=== PATIENT | male | born 2000 | race Caucasian/White ===

== ENCOUNTER 2022-08-21 12:09 | Emergency (ER) | payer OTHER, SELFPAY ==
[2022-08-21 12:10] VITALS: BP 153/93; PULSE 63; RESP 18; TEMP 36.7; O2SAT 100; BMI 23.3
[2022-08-21 12:12] VITALS: O2SAT 100
--- NOTE | 2022-08-21 12:17 | EDS_ITS ---
HPI History of Present Illness Chief Complaint: Trauma Narrative Narrative: 22-year-old male who denies significant past medical history presents with injury to his left hand that he sustained prior to arrival. He presents with his employer, stating that he got his left hand caught in a rib table/table saw. Patient states he is right-hand dominant. His last tetanus immunization is unknown. He presents with total amputation of his second digit on his left hand at the PIP joint with the finger wrapped in a towel in a separate bag on ice. He sustained lacerations to the volar aspect of his fourth digit. The tip of the fourth digit is taped heavily. There is no active bleeding. [facility] Medical History Concussion Skull fracture Home Medications NK 08/21/22 [History Last Taken Unknown] Allergy/AdvReac Type Severity Reaction Status Date / Time No Known Allergies Allergy Verified 08/21/22 12:09 Social History Smoking Status: Current every day smoker tobacco type: cigarettes ROS ROS ED ROS Narrative Constitutional: No fever, no chills. HEENT: No sore throat. No neck pain. No loss of vision. No rhinorrhea. Cardiovascular: No chest pain. No palpitations. No pedal edema. Respiratory: No cough, no shortness of breath. Abdominal: No abdominal pain. No nausea. No vomiting. Genitourinary: No dysuria. No hematuria. Musculoskeletal: No myalgias. Left hand pain, specifically digits 2 and 4. Neurologic: No headaches. No dizziness. No lightheadedness. Skin: No rash. No change in color. Psychiatric: No depression. No anxiety. EXAM Physical Exam Narrative Exam Narrative: Afebrile. Vital signs noted. HEENT: Normocephalic. Atraumatic. PERRL, EOMI. Neck soft and supple. No point tenderness or step off. Cardiovascular: Regular rate and rhythm. No murmurs, rubs, or gallops appreciated. Respiratory: No tachypnea. Lungs clear to auscultation bilaterally. Gastrointestinal: Abdomen soft, nontender, with normoactive bowel sounds. No rebound or guarding. Neurological: Awake. Alert. Nonfocal, nonlateralizing. Skin: No rash. Normal color. No pallor. Musculoskeletal: No pedal edema. Inspection of the left hand shows total amputation of the second digit at the PIP joint, no active bleeding. There is a longer laceration on the volar aspect of the fourth digit and the left fourth digit appears more extended. He is able to move his thumb and appears uninjured at the wrist and above. He has good capillary refill of his thumb. Upon closer inspection after pain medication and removal of bandage and bandanna tourniquet, patient does have a laceration that extends from the lateral aspect of the base of the second digit across the base of the third digit towards the fourth, and he does have the laceration at the PIP joint of the fourth digit. Const Vital Signs: 08/21/22 12:10 08/21/22 12:12 08/21/22 12:47 Temperature 98.0 F 96.1 F L Temperature Source Temporal Oral Pulse Rate 63 Respiratory Rate 18 Respiratory Effort Normal Non-Labored Blood Pressure 153/93 H Blood Pressure Mean 113 Pulse Ox 100 100 Oxygen Delivery Method Room Air Room Air 08/21/22 12:58 08/21/22 13:23 08/21/22 13:40 Temperature Temperature Source Pulse Rate 61 95 66 Respiratory Rate 18 18 18 Respiratory Effort Blood Pressure 140/90 H 134/87 H 136/88 H Blood Pressure Mean 106 102 104 Pulse Ox 97 95 97 Oxygen Delivery Method Room Air Room Air MDM MDM MDM Narrative Medical decision making narrative: Telemetry hand consultation was obtained at the [facility]. Patient will be given an Ancef bolus and tetanus immunization. He was administered morphine and ondansetron for analgesia. I will obtain a CBC and a BMP. I reviewed his laboratory work and he has a normal white count of 6.7, electrolyte panel is grossly unremarkable except for glucose appropriately elevated at 138 with a normal anion gap of 9. I reviewed his radiology imaging of his left hand and there is complete amputation of the left digit second through the PIP joint, no other fracture noted. Upon better inspection of the volar aspect of his left hand, there is a laceration that extends from his second digit across the third digit at the base, and into the fourth where he has a laceration at the PIP as well. The tape was removed from his fourth digit and there does not appear to be any current laceration at that area. I was able to discuss the patient with the hand surgeon at the [facility], Dr. Elizondo. He excepted him for transfer for further evaluation of his hand injuries, and discussed the possibility of reattachment versus not. In discussion with the patient, he would like to have that discussion in person with a hand surgeon. There is an accepting ED physician and he will be an ED to ED transfer. The digit was placed in a saline gauze dressing in a separate bag and then into an isolatory at the request of Dr. Elizondo. The amputation tip was placed in a wet saline gauze and his bandanna tourniquet was removed and there is no evidence of active bleeding currently. He will be placed in a bulky d ressing and transferred to the [facility] for further evaluation by hand surgery. Disposition is transferred in stable condition. Patient did require additional analgesia in the form of an additional 4 of morphine and Dilaudid 0.5 mg. History & Record Review Discussion w/independent historian: Patient and Friend (Employer) Additional record(s) reviewed:: No prior records (No prior ED visits) Lab Data Attestation: I reviewed the patient's lab results. Labs: Laboratory Results - last 24 hr 08/21/22 08/21/22 12:10 12:10 WBC 6.7 RBC 5.06 Hgb 15.4 Hct 44.1 MCV 87.2 MCH 30.4 MCHC 34.9 RDW Std Deviation 38.9 RDW Coeff of Ladarius 12.4 Plt Count 257 MPV 9.2 Immature Gran % (Auto) 0.300 Neut % (Auto) 41.1 L Lymph % (Auto) 44.9 H Pitkin % (Auto) 10.3 H Eos % (Auto) 2.5 Baso % (Auto) 0.9 Absolute Neuts (auto) 2.8 Absolute Lymphs (auto) 3.01 Nucleated RBC % 0 Sodium 138 Potassium 3.6 Chloride 104 Carbon Dioxide 25.0 Anion Gap 9 BUN 14 Creatinine 1.11 Estim Creat Clear Calc 113.06 Est GFR (MDRD) Af Amer 108 Est GFR (MDRD) Non-Af 89 BUN/Creatinine Ratio 12.6 Glucose 138 H Calcium 9.4 Radiography Diagnostic Testing: Clinical Impression(s) from Imaging Studies Hand X-Ray 08/21/22 12:25 IMPRESSION: Amputation of the middle and distal phalanges of the index finger as well as laceration of the fourth digit. No radiopaque foreign body is seen. Electronically Signed: Silvano Hunt MD at 13:25 EDT , Discharge Plan Triage Chief Complaint: Trauma ED Provider: Blake Rebolledo Dx/Rx/DC Orders Prescriptions: No Action NK Primary Care Provider: Care Physician,No Primary Referrals: Care Physician,No Primary [Primary Care Provider] -
--- NOTE | 2022-08-21 12:25 | RAD_ITS ---
STUDY: X-RAY - LEFT HAND REASON FOR EXAM: Male, 22 years old. Amputation of the index finger. TECHNIQUE: 3 view(s) of the hand. COMPARISON: None. FINDINGS: Normal radiocarpal articulation. Normal distal radioulnar joint. Normal visualized carpal bones. Normal carpal articulations Normal carpometacarpal articulation of the thumb. Normal second through fifth carpometacarpal joints. Normal metacarpi. Normal metacarpophalangeal joint of the thumb. Normal interphalangeal joint of the thumb. Normal proximal and distal phalanges of the thumb. Normal metacarpophalangeal joints of the second through fifth fingers. There is evidence of amputation of the middle and distal phalanges of the index finger. Normal phalanges of the third through fifth fingers. Soft tissue laceration of the fourth digit. RAD/Hand Min 3 Views IMPRESSION: Amputation of the middle and distal phalanges of the index finger as well as laceration of the fourth digit. No radiopaque foreign body is seen. Electronically Signed: Silvano Hunt MD at 13:25 EDT ,
[2022-08-21 12:27] LABS: Absolute Lymphocyte Count 3.01 X10^3/uL (0.83-4.51); Absolute Neutrophil Count 2.8 X10^3/uL (2.0-7.7); Basophil# 0.06 X10^3/uL; Basophil% 0.9 % (0-1); Eosinophil# 0.17 X10^3/uL; Eosinophils% 2.5 % (0-5); Hematocrit 44.1 % (40-54); Hemoglobin 15.4 g/dL (13.0-16.5); Lymphocyte # 3.01 X10^3/ul (0.83-4.51); Lymphocyte % 44.9 % (19-41); Mean Corp Hgb Conc 34.9 g/dL (32-36); Mean Corpuscular Hgb 30.4 pg (27.0-32.0); Mean Corpuscular Volume 87.2 fL (80-94); Mean Platelet Vol. 9.2 fl (6.2-12.0); Monocyte# 0.69 X10^3/uL; Monocyte% 10.3 % (0-10); NRBC Flagged by Analyzer 0 % (0-5); Neutrophil # 2.76 X10^3/uL (2.7-7.7); Neutrophil % 41.1 % (47-70); Platelet Count 257 K/mm3 (150-450); RBC Distribution Width CV 12.4 % (11.6-14.6); RBC Distribution Width SD 38.9 fl (35.1-43.9); Red Blood Count 5.06 M/mm3 (4.6-6.2); White Blood Count 6.7 K/mm3 (4.4-11.0)
[2022-08-21] MEDS: Morphine 4 MG/ML Syringe IV ×2 (12:27→12:57)
[2022-08-21] MEDS: Ondansetron 4 MG/2 ML Vial IV (12:27)
[2022-08-21] MEDS: Cefazolin 1 GM/50 ML BAG IV (12:34)
[2022-08-21 12:35] LABS: Anion Gap 9 (5-15); BUN 14 mg/dL (7-18); BUN/Creat Ratio 12.6 RATIO (10-20); Calcium,Total 9.4 mg/dL (8.5-10.1); Chloride 104 mmol/L (98-107); Creatinine, Serum 1.11 mg/dL (0.70-1.30); EST Glomerular Filtration Rate 89 mL/min (>60); Est Glom Filt Rate - Afr Amer 108 mL/min (>60); Estimated Creatinine Clearance 113.06 ml/min; Glucose 138 mg/dL (74-106); Potassium 3.6 mmol/L (3.5-5.1); Sodium Level 138 mmol/L (136-145)
[2022-08-21] MEDS: Diphth,Pertuss(Acell),Tet Vac 0.5 ML Vial IM (12:36)
[2022-08-21 12:47] VITALS: TEMP 35.6
[2022-08-21 12:58] VITALS: BP 140/90; PULSE 61; RESP 18; O2SAT 97
[2022-08-21 13:23] VITALS: BP 134/87; PULSE 95; RESP 18; O2SAT 95
[2022-08-21] MEDS: HYDROmorphone 0.5 MG/0.5 ML SYRINGE IV (13:39)
[2022-08-21 13:40] VITALS: BP 136/88; PULSE 66; RESP 18; O2SAT 97
--- NOTE | 2022-08-21 13:52 | ED.RN ---
Pt. amputated finger preserved her Dr. Rebolledo orders. Finger wrapped in saline soaked gauze, placed in biohazard, bag then placed in another biohazard bag that contained ice and a small amount of water, that bag was then placed in a bed hatch filled with ice. Pt. hand was wrapped in saline soaked gauze an covered with a bulky dressing. This RN ensured that Physicians took pt. amputated finger in the ice bath.
--- NOTE | 2022-08-21 13:58 | ED.RN ---
Patient employer was present at bedside, he states pt. will be covered under the [facility] workers accident plan. He confirmed pt. did not need a drug test. This RN had pt. fill out a FROI just in case one would be needed.
== END 2022-08-21 14:03 | disposition short-term general hospital (02) ==
LOC: ED 12:40
PROVIDERS: Emergency Provider Emergency Medicine; Visit Provider Emergency Medicine
DX: S61.412A Laceration without foreign body of left hand, initial encounter (principal); F17.210 Nicotine dependence, cigarettes, uncomplicated; Z23 Encounter for immunization; W31.89XA Contact with other specified machinery, initial encounter
CPT/HCPCS: 73130; 80048; 85025; 90715; 96365; 96372; 96375; 96376; 99285; A4216; J2405

== ENCOUNTER 2022-11-19 07:30 | Outpatient (RCR) | payer SELFPAY, OTHER ==
--- NOTE | 2022-09-29 08:14 | HP.OTEVAL ---
Patient's Visit Information Visit Information Visit Information: CISCO HANKS is a 22 year old M, referred to Occupational Therapy by TIANNA MILLIGAN, with a diagnosis of Left IF amputation distal proximal phalanx, FDP,FDS tendon repair. Date of Evaluation: 09/23/22 Occupational Therapist: Viola Ramirez, MANNIE/Sourav, CHT Subjective Subjective: This 22 year old [facility] male was seen for OT eval with dx of left IF amputation at the Distal proximal phalanx, left MF FDP and FDS laceration with zone 2 repair. pt states on August 21 he suffered a table saw injury. Went to ER and transported to [facility]. Pt has sx on August 22 2022. pt went for follow up and stitch removal on 09/01/22 order was for Immobilization: Referral to OT for custom dorsal forearm-based dorsal blocking splint- ( Pt arrives today WITHOUT splint) admits he has not been wearing it at night or during the day. stopped wearing it about 4 days ago. (possibly 09/18/22) order also calls for Gentle Motion will defer formal protocol for flexor tendon zone 2 repair until wounds are more stable ( likely next week) this order was dated on 09/01/22. pt arrives today 4 weeks and 4 days s/p from left IF revision amputation at the distal proximal phalanx (well healed). left MF FDS laceration with repair zone 2.( open wound with tendon exposure) Left RF FDP and FDS laceration repair zone 2 and left middle finger and ring finger digital nerve laceration repair with nerve allograft. pt states he has returned to living by himself and changing his dressing- also states he has returned to work. pt states he is using right hand due to limited use of left hand while healing. 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 pt states he returned to work and is doing what he can. pt states he is changing dressing on his hand 2-3x a day- Pain left hand: Current Pain Intensity: 5 Pain Intensity Range: 2 and 5 Objective Objective/Observation: pt demo with open wound and tendon exposure at zone 2 of MF Open wound on left RF ROM PIP: left IF PIP PROM 70 RF 80* DIP: left IF PIP PROM 45 RF 60 ROM Comments: right digits demo full ROM therapist keeping pt in protective position-(wrist in 30* flex and MPs at 65* = pt demo digit PIP ext of MF-RF-LF to 0 pt demo with slight digital active flexion of MF/RF of the FDS no noted FDP motion of RF pt demo with open wound and tendon exposure at zone 2 of MF Open wound on left RF red seeping Strength Strength Comments: will test later date as appropriate Sensation Sensation Comments: pt states he does have sensation loss on affected fingers Quick DASH-Disab of Arm,Shoulder& Hand Quick DASH Score: 70.0000 Goals Goal:100% adherence to protocol: Yes Comment: Zone 2 FDP/FDS protocol Goal:Daily scar massage when approriate: Yes Goal:ROM equal to unaffected hand: Yes Goal:Metal Pattern Maker/Pinch strength at least 75% of unaffected hand: Yes Goal:No pain with affected hand use: Yes Goal:PIP Circumferences equal to unaffected hand: Yes Goal:Full use of affected hand in daily activities including work: Yes Goal:Decrease scar hypersensitivity: Yes Other Goal: wound care Rehabilitation General Assessment: Pt arrives 4 weeks and 4 days s/p from left IF revision amputation at the distal proximal phalanx, left MF FDS repair and RF FDS and FDP repair zone 2 and left MF and RF digital nerve repair with allograft. Pt arrives WITHOUT dorsal blocking orthosis - IF amputation healed but open wound of MF with tendon exposure and RF open wound. clear seeping. pt is limited with functional use of left hand with all ADLs and IADLs. pt would benefit from skilled OT services 2x week for 12 weeks to return pts ROM, strength and use of left hand with ADLs and IADLs at maximal rehab potential. Therapist observed pt forcing fingers flat and extending wrist while this therapist was obtaining medical hx. (therapist advised pt to stop doing that and ed. on precautions and why this is not something he should be doing at this time) pt demo understanding but did state he was doing this quit a bit. Today Therapist ed. pt on signs and symptoms to watch for incase of infection- Need of dorsal blocking orthosis to prevent interruption in repair, and avoiding wrist and digit extension. therapist ed. pt on healing process of tendon. Therapist concerned that tendon has ruptured due to pt not maintaining precautions. as well as return to surgeon for follow up as open wound may need skin graft or repair to increase progress. Rehabilitation Potential: Good Anticipated Interventions Anticipated Interventions: A/AAROM/PROM, Strengthening, Scar Care, Triggerpoint Release, Sensory Retraining, Wound Care, Modalities, Orthoses, Joint Protection/Energy Conservation, Fine Motor Coord/Quintin, Sensory Stimulation, Education re assistive Equipment, Education re Diagnosis, Education re Skin Care and Precautions and Caregiver Training Visit Plan Frequency: 1-2x /Week Duration: 3 Months General Plan: following Surgeons guidelines initiate ed. on precautions Zone 2 FDS/FDP repair pt may need further sx to close open wounds TEXT: Thank you for the opportunity to evaluate your patient. For Medicare and Medicare HMO plans, please review the plan of care and approve it. It will need to be FAXED BACK to us at [phone] for Medicare purposes. Please let me know if there are questions or concerns regarding this plan of care. Physician Signature: Date:
--- NOTE | 2022-10-13 15:03 | HP.OTEVAL ---
Patient's Visit Information Visit Information Visit Information: CISCO HANKS is a 22 year old M, referred to Occupational Therapy by TIANNA MILLIGAN, with a diagnosis of Left hand/MF/RF table saw injury/open wound. Date of Evaluation: 10/13/22 Occupational Therapist: Viola Ramirez, MANNIE/Sourav, CHT Subjective Subjective: This 22 year old male returned to clinic after pt went back for sx Oct.06 as he was having difficulty with open would closure and due to possible tendon rupture. Pt arrives with out dorsal blocking orthosis on and when therapist asked about it he stated Dr said I did not have to wear it as he could not repair tendon pt has gauze wrap - pt states he is doing fine wrapping his hand. no issues- still has numbness on RF and MF. per pt RF is ruptured and unable to be re attached. and MF tendon was exposed to long so there was nothing they could do. pt states cleaned his hand and closed what he could. pt 7 weeks and 3 days s/p from initial sx. pt IF below PIP amputation healed and looking good. 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 pt states he returned to work and is doing what he can. pt states he is changing dressing on his hand 2-3x a day- Pain left hand: Current Pain Intensity: 0 Pain Intensity Range: 3 Objective Objective/Observation: pt demo with open wound and tendon exposure at zone 2 of MF Open wound on left RF ROM MP: left MF 0/60 RF 0/60 LF 0/65 PIP: left MF -20/30 RF -20/35 LF 0/50 DIP: left MF 0/15 RF 0/0 LF 0/50 ROM Comments: pt demo slight movement of MF and RF PIP trace of motion of DIP flex of MF RF no noted motion of DIP ( Due to lack of FDP) Strength Protective Officer: right 100# left NT Lateral Pinch: right 20# left NT Tripod Pinch: right 18# left NT Strength Comments: will test left hand at later date Sensation Sensation Comments: IR stub 2.83 MF tip ulnar side 4.14 poximal unable IF 6.65 Right 2.83 Quick DASH-Disab of Arm,Shoulder& Hand Quick DASH Score: 83.3325 Goals Goal:100% adherence to protocol: Yes Comment: Zone 2 FDP/FDS protocol Goal:Daily scar massage when approriate: Yes Goal:ROM equal to unaffected hand: Yes Comment: pt will demo increase ability to form tight composite fist for IADLs by d/c Goal:Protective Officer/Pinch strength at least 75% of unaffected hand: Yes Goal:No pain with affected hand use: Yes Goal:PIP Circumferences equal to unaffected hand: Yes Goal:Full use of affected hand in daily activities including work: Yes Goal:Improvement in sensation documented by [place]-Nicolette monofiliaments: Yes Goal:Decrease scar hypersensitivity: Yes Other Goal: wound care Rehabilitation General Assessment: Pt arrives s/p 1 week and 1 day s/p from left MF debridement of open wound including skin subcutaneous tisse and tendon, Left RF distal and proximal FDP tendon excision with secondary closure of left RF volar wound. Due to rupture of FDP tendon repair and proximal migration of the proximal stump with inability to repair due to 3cm gap distal and proximal segments of the tendon were excised as they were becoming non- viable ends. The FDS tendon repair was intact but scar tissue developed around in the RF. MF FDP 90% loss with 10% remain closed with polyNovo BTM. Due to healing structures pt demo need for skilled OT services 1-2x week for 8 weeks to assist pt in return to a BELINDA level with residential appliance repair technician/pinch for ADLs and IADLs. Rehabilitation Potential: Good Anticipated Interventions Anticipated Interventions: A/AAROM/PROM, Strengthening, Scar Care, Desensitization, Sensory Retraining, Wound Care, Modalities, Orthoses, Joint Protection/Energy Conservation, Ergonomic Education, Fine Motor Coord/Quintin, Sensory Stimulation, Education re assistive Equipment, Education re Diagnosis, Caregiver Training and Home Program Visit Plan Frequency: 1-2x /Week Duration: 3 Months General Plan: following Surgeons guidelines initiate ed. on precautions Zone 2 FDS/FDP repair TEXT: Thank you for the opportunity to evaluate your patient. For Medicare and Medicare HMO plans, please review the plan of care and approve it. It will need to be FAXED BACK to us at [phone] for Medicare purposes. Please let me know if there are questions or concerns regarding this plan of care. Physician Signature: Date:
--- NOTE | 2023-03-10 13:59 | HP.OTDCNRP_ITS ---
Patient Information Patient Information: CISCO HANKS was seen in my office for initial evaluation on 10/13/22. The following Plan of Care was established for this patient: POC Established Initial Frequency: 1-2x /Week Initial Duration: 3 Months Plan: pt to call Anticipated Interventions Anticipated Interventions: A/AAROM/PROM, Strengthening, Scar Care, Desensiti zation, Sensory Retraining, Wound Care, Modalities, Orthoses, Joint Protection/Energy Conservation, Ergonomic Education, Fine Motor Coord/Quintin, Sensory Stimulation, Education re assistive Equipment, Education re Diagnosis, Caregiver Training and Home Program Last Seen Last Seen: This patient was last seen in our office 11/19/22. Pertinent comments regarding their Occupational therapy will appear below: pt was seen for 10 OT sessions following table saw injury- due to complications of infection and tendon exposure and rupture of tendon after repair- pt had skin graft to protect open wound- therapy did see pt while wound was healing- pt at this time has not scheduled further apts and is now d.c due to time lapse in services. At this point I will be discontinuing this patient from occupational therapy. I would be happy to see this patient again in the future if found appropriate by the physician. Thank you! Viola Ramirez, OTR/L, CHT
== END 2022-11-19 19:00 | disposition home or self-care (01) ==
LOC: OT 07:30
DX: S68.111D Complete traumatic metacarpophalangeal amputation of left index finger, subsequent encounter (principal)
CPT/HCPCS: 97110; 97140; 97166; 97167; 97168; 97530

== ENCOUNTER 2024-06-29 14:44 | Day surgery (SDC) | payer OTHER, SELFPAY ==
[2024-06-29] VITALS (10 sets, daily range): BP systolic 109–130; BP diastolic 61–83; PULSE 70–82; RESP 16–18; TEMP 36.8–37.1; O2SAT 97–100; BMI 25.2
--- NOTE | 2024-06-29 14:57 | ED.RN ---
Pt declines filing Worker's Comp, although it is a work injury. [facility] Worker's Aid will be payer.
--- NOTE | 2024-06-29 15:11 | EDS_ITS ---
HPI History of Present Illness Chief Complaint: Upper Extremity Injury Narrative Narrative: 24-year-old male, [id number], presents with injury to his right thumb that he sustained approximately 2 hours ago. He was working with tools and got his right thumb caught in a [place]. He amputated the tip of his right thumb. Of note, he had a similar injury to his left index finger 2 years ago for which he was sent to [facility]. He is unsure of his last tetanus immunization. He denies other injury. [facility] Medical History Concussion Skull fracture Home Medications ?Medication ?Instructions ?Recorded ?Last Taken ?Type NK 08/21/22 Unknown History Allergy/AdvReac Type Severity Reaction Status Date / Time No Known Allergies Allergy Verified 06/29/24 14:48 Surgical History H/O hand surgery Social History Smoking Status: Current every day smoker tobacco type: cigarettes ROS ROS ED ROS Narrative Review of systems positive for amputation of tip of right thumb. No other injury. EXAM Physical Exam Narrative Exam Narrative: GCS 15. ABCs intact. Cardiovascular examination regular rate and rhythm. Lungs clear to auscultation. Abdomen soft, nontender, with positive bowel sounds. Inspection of the tip of the right thumb shows amputation of the tip without active bleeding. It is residential down the nailbed. Able to oppose thumb. Inspection of the left hand does reveal partial amputation of his left index finger that is well-healed. Const Vital Signs: 06/29/24 14:45 Temperature 98.2 F Temperature Source Oral Pulse Rate 81 Respiratory Rate 18 Blood Pressure 128/83 H Blood Pressure Mean 98 Pulse Ox 98 Oxygen Delivery Method Room Air MDM MDM MDM Narrative Medical decision making narrative: Concern is for open fracture. Patient will be given morphine for analgesia and cefazolin 2 g intravenously. X-rays obtained of the right thumb. I contacted plastic surgery on-call, Dr. Roldan. I did review his prior records, and he received a Tdap in 2022. On my independent interpretation of the x-rays, there is amputation of the distal phalanx/tuft of the right thumb. History & Record Review Discussion w/independent historian: Patient Discharge Plan Triage Chief Complaint: Upper Extremity Injury ED Provider: Blake Rebolledo Dx/Rx/DC Orders Prescriptions: No Action NK Primary Care Provider: Care Physician,No Primary Referrals: Care Physician,No Primary [Primary Care Provider] - Print Language: Vietnamese
--- NOTE | 2024-06-29 15:11 | EX.ED.UPPERE ---
HPI History of Present Illness Chief Complaint: Upper Extremity Injury Narrative Narrative: 24-year-old male, [id number], presents with injury to his right thumb that he sustained approximately 2 hours ago. He was working with tools and got his right thumb caught in a [place]. He amputated the tip of his right thumb. Of note, he had a similar injury to his left index finger 2 years ago for which he was sent to [facility]. He is unsure of his last tetanus immunization. He denies other injury. [facility] Medical History Concussion Skull fracture Home Medications ?Medication ?Instructions ?Recorded ?Last Taken ?Type ascorbic acid (vitamin C) 1,000 mg 1 g PO DAILY 06/29/24 Unknown History tablet (C-1000) cephalexin 500 mg capsule 500 mg PO Q8H 7 days #21 caps 06/29/24 Unknown Rx cyanocobalamin (vitamin B-12) 100 100 mcg PO DAILY 06/29/24 Unknown History mcg tablet (Vitamin B-12) oxycodone 5 mg tablet 5 mg PO Q8H PRN pain 5 days #20 06/29/24 Unknown Rx tabs Allergy/AdvReac Type Severity Reaction Status Date / Time No Known Allergies Allergy Verified 06/29/24 14:48 Surgical History H/O hand surgery Social History Smoking Status: Current every day smoker tobacco type: cigarettes ROS ROS ED ROS Narrative Review of systems positive for amputation of tip of right thumb. No other injury. EXAM Physical Exam Narrative Exam Narrative: GCS 15. ABCs intact. Cardiovascular examination regular rate and rhythm. Lungs clear to auscultation. Abdomen soft, nontender, with positive bowel sounds. Inspection of the tip of the right thumb shows amputation of the tip without active bleeding. It is correction down the nailbed. Able to oppose thumb. Inspection of the left hand does reveal partial amputation of his left index finger that is well-healed. Const Vital Signs: 06/29/24 14:45 Temperature 98.2 F Temperature Source Oral Pulse Rate 81 Respiratory Rate 18 Blood Pressure 128/83 H Blood Pressure Mean 98 Pulse Ox 98 Oxygen Delivery Method Room Air MDM MDM MDM Narrative Medical decision making narrative: Concern is for open fracture/amputation of tip of right thumb. Patient will be given morphine for analgesia and cefazolin 2 g intravenously. X-rays obtained of the right thumb. I contacted plastic surgery on-call, Dr. Roldan. I did review his prior records, and he received a Tdap in 2022. On my independent interpretation of the x-rays, there is amputation of the distal phalanx/tuft of the right thumb. I reviewed the radiology report which confirms my independent interpretation. In discussion with Dr. Roldan, after his evaluation in the ED, he would like to take the patient to the OR for washout. Disposition is ED to the OR in stable condition. History & Record Review Discussion w/independent historian: Patient Radiography X-Ray: Read by ED Physician, Read by Radiologist and Fracture (Open fracture right distal phalanx of thumb.) Discharge Plan Dx/Rx/DC Orders Clinical Impression: Traumatic amputation of tip of right thumb, Open fracture of right thumb Disposition Disposition: Acute Care Hospital [facility]
--- NOTE | 2024-06-29 15:20 | RAD_ITS ---
PROCEDURE: FINGER(S) MIN 2 VIEWS 06/29/2024 REASON FOR EXAM: TRAUMA Partial thumb amputation. TECHNIQUE: 3 view(s) of the right thumb COMPARISON: None FINDINGS: Bones: Amputation of the distal portion of the distal phalanx of the thumb with overlying soft tissue laceration. Joints: Normal alignment. Soft tissues: Soft tissue laceration. Other: RAD/Finger(s) Min 2 Views IMPRESSION: Soft tissue laceration with underlying amputation of the distal portion of the distal phalanx of the thumb. Reading Location: [place] [id number]
[2024-06-29] MEDS: Morphine 4 MG/ML Syringe IV (15:25)
[2024-06-29] MEDS: Cefazolin 2 GM in Syringe 10 ML IV (16:06)
[2024-06-29] MEDS: HYDROmorphone 0.5 MG/0.5 ML SYRINGE IV (16:18)
--- NOTE | 2024-06-29 16:26 | PCM.OPRPT ---
Problems Associated Problem List Diagnoses (1) Open fracture of right thumb: (2) Traumatic amputation of tip of right thumb: Operative Report (Standard) Operative Information Date of Procedure: 06/29/24 Pre-Operative Diagnosis: Right thumb open fracture and thumb tip amputation Post-Operative Diagnosis: Same Surgery/Procedure Performed: 1) Wash out and debridement of open fracture, right thumb (CPT:61473) 2) Intermediate closure of right thumb laceration, 3 cm (CPT: 29095) transfer specialist: Yes Laminated Plastics Assembler And Gluer: [place] Tasks completed by surveyor's assistant: Retracting Type of Anesthesia: General/Supplemental (10 cc 0.25% Marcaine ) RN Documented Start/Stop Times: Operation Date: 06/29/24 16:45 Case Time Into Pre-Op 06/29/24 16:51 Anesthesia Start 06/29/24 17:22 Into Room 06/29/24 17:22 Procedure Start 06/29/24 17:52 Procedure End 06/29/24 18:14 Anesthesia End 06/29/24 18:30 Out of Room 06/29/24 18:30 Into Recovery 06/29/24 18:34 Procedure Start Time: 17:52 Procedure Stop Time: 18:14 Select all DRAINS/GRAFTS/IMPLANTS that apply: None Estimated Blood Loss: minimal Specimen collected: No Description of surgery: Indications: Lito Haney is a 24-year-old male who presents with a right thumb open fracture and traumatic amputation following a crush injury in his wood shop. Presents today for washout in the operating room with possible reconstruction versus closure versus dermal substitute versus dressing. Procedure details: Patient was correctly identified in preoperative holding and taken back to the operating room where he was administered general anesthesia. He was prepped and draped in sterile fashion and all proper timeouts were performed. The wound was irrigated with 3 L of normal saline and Irrisept. The tip of the distal phalanx bone was partially crushed/devitalized and had sharp edges in the base of the wound. These were debrided and removed with rongeur, as was the foreign body/debris (dirt) that was also excised with a rongeur and cleaned. Devitalized skin and fat was also excised. The wound was irrigated again. There was adequate volar soft tissue for rotation advancement over the distal phalanx exposed bone from the ulnar side of the thumb. This tissue was rotated and advanced over the distal phalanx and sutured with a 3-0 nylon suture to the remaining nail plate to stabilize the repair with interrupted sutures. This was a simple closure 3 cm. there was no exposed bone at the end of the case. There was a radial and dorsal thumb tip wound with exposed fat at the completion of the case which was dressed with Xeroform. Felix and Coban were wrapped around the thumb. The patient was awakened and taken the PACU in stable condition. A 10 cc 0.25% Marcaine block was applied before the patient was awakened. Postoperative plan: Start Dial soap soaks and Xeroform dressing changes for the wound postop day 1 (twice daily) until follow-up on 04 July 2024 in clinic. Continue 3 times daily 500 mg Keflex. Elevate for pain control. No use of the right thumb until cleared (until wound heals). Surgical Findings: Adequate volar thumb soft tissue for closure over the distal phalanx bone (the injury was a dorsal oblique laceration to the thumb with viable volar soft tissue). Complications Complications: No Admit VTE Documentation VTE Mechan Device Prophylaxis: SCD's
--- NOTE | 2024-06-29 16:26 | EX.PCM.CON.S ---
Assessment & Plan Assessment/Plan (1) Open fracture of right thumb: (2) Traumatic amputation of tip of right thumb: PLAN: Plan I spoke with the patient about options including my recommendation that we washout the open fracture in the operating room. I will attempt closure with either primary closure or advancement of volar soft tissue versus adjacent tissue transfer (Briseyda flap) versus washout with partial closure and dressing changes versus dermal substitute. I talked to the patient extensively about the risks of surgery, including bleeding, infection, damage to surrounding structures, poor scaring, surgical site dehiscence and wound formation, need for wound care, need for repeat operations, failure to obtain the desired result, flap failure if the flap is performed, soft tissue necrosis requiring multiple debridements, and the risks of anesthesia. The benefits and alternatives of this surgery were also discussed. All of their questions were answered, and they agreed to proceed with surgery. He understands there is an underlying risk of osteomyelitis that we will try to mitigate this risk by washing the fracture out getting closure over the bone. He understands that there will likely be a severe nailbed deformity that may require revisions in the future. Taken patient to the operating room emergently right now. Consent signed HPI Consult Data Date of Consult: 06/29/24 HPI Narrative HPI Narrative: CISCO HANKS is a 24 M who presents with past medical history of left index finger trauma requiring revision amputation approximately 2 years ago who presents today with a right thumb tip amputation that occurred while he was working at his wood shop. The thumb was crushed in a roller. He does not have the thumb tip as he reports that it was mutilated. Today in the emergency department he is complaining of sharp severe pain, worsened by movements and improved with rest and elevation. His tetanus is up-to-date. He is receiving 2 g of Ancef. He has never hurt this hand before. 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 [facility] Medical History Concussion Skull fracture Home Medications ?Medication ?Instructions ?Recorded ?Last Taken ?Type ascorbic acid (vitamin C) 1,000 mg 1 g PO DAILY 06/29/24 Unknown History tablet (C-1000) cyanocobalamin (vitamin B-12) 100 100 mcg PO DAILY 06/29/24 Unknown History mcg tablet (Vitamin B-12) Allergy/AdvReac Type Severity Reaction Status Date / Time No Known Allergies Allergy Verified 06/29/24 14:48 Surgical History H/O hand surgery Social History Smoking Status: Current every day smoker tobacco type: cigarettes Physical Exam Narrative Right Upper Extremity Inspection: Right thumb tip amputated/crushed. Exposed distal phalanx at the base of the wound with mutilated sterile matrix. The injury is dorsal oblique (volar skin and soft tissue was viable) Palpation: No collateral ligament instability of the IP joint Motor: Able to bend and extend all MP, PIP, and DIP joints. No apparent FPL or EPL injuries. Sensory: Intact to light touch on the radial and ulnar borders. Vascular: Finger tips are warm and well perfused with <2 second capillary refill. Imaging Radiology Impression Finger X-Ray 06/29/24 15:20 IMPRESSION: Soft tissue laceration with underlying amputation of the distal portion of the distal phalanx of the thumb. Reading Location: [facility] Charges/Coding Multi Select Codes Visit Charges Office Visit/Consults: 42192 OV L3 New 30 min (57 modifier for decision to take immediately to OR for major surgery )
--- NOTE | 2024-06-29 16:56 | PCM.PRE.AN2 ---
ASA Classification* ASA Classification ASA Classification: 2 and E Assessment & Plan Anesthesia* Anesthesia Assessment Anesthesia Assessment: Discussed sedation and/or anesthesia options, risks, benefits, and alternatives with patient/parents/legal guardian/POA. Questions invited. The patient/parents/legal guardian/POA seems to understand and agrees to proceed with anesthesia plan. Reviewed the physical assessment, medical history, allergy history and patient home medications list prior to surgery/procedure/anesthetic and documented any changes. Performed airway and anesthesia risk assessments. Anesthesia Type Anesthesia Type: General (Patient is a full stomach. He ate a bologna sandwich for lunch at 12 noon. He will require a rapid sequence induction with endotracheal tube.) History Source History Obtained from:: Patient and Chart Anesthesia Focused Assessment* Temperature: 98.2 F Pulse Rate: 81 Blood Pressure: 130/74 Respiratory Rate: 18 Pulse Ox: 98 Oxygen Delivery Method: Room Air Airway Assessment Mouth opens: >3 cm Mallampati Score: II Teeth Condition: Chipped/Broken (Chipped left lower molar. Rest are tight.) Neck Range of motion (ROM): Full ROM Focused Labs Anesthesia Preop lab: CBC WBC 6.7 K/mm3 (4.4-11.0) 08/21/22 12:10 08/21/22 RBC 5.06 M/mm3 (4.6-6.2) 08/21/22 12:10 08/21/22 Hgb 15.4 g/dL (13.0-16.5) 08/21/22 12:10 08/21/22 Hct 44.1 % (40-54) 08/21/22 12:10 08/21/22 Plt Count 257 K/mm3 (150-450) 08/21/22 12:10 08/21/22 CHEMISTRY Potassium 3.6 mmol/L (3.5-5.1) 08/21/22 12:10 08/21/22 Sodium 138 mmol/L (136-145) 08/21/22 12:10 08/21/22 BUN 14 mg/dL (7-18) 08/21/22 12:10 08/21/22 Creatinine 1.11 mg/dL (0.70-1.30) 08/21/22 12:10 08/21/22 Glucose 138 mg/dL (74-106) H 08/21/22 12:10 08/21/22 COAG Pre-Assessment Diagnosis/Proposed Procedure Planned Operative Procedure(s): Right thumb open fracture washout, possible tissue substitute, possible closure with flap or graft, with possible dressings. 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 When Was Last Pacemaker Check QUESTION #4 FULL TEXT: You/Your Family Experience fever (hyperthermia) with Anesthesia Last Oral Intake Last Oral intake: Last Oral Intake NPO since Meds taken in AM with sips of water? Meds patient instructed to take am of surgery Any additional information?: Yes NPO since: 12:00 PONV PONV - instant powder supervisor: PONV - instant powder supervisor Female HX of Motion Sickness HX of N/V After Surgery Non-Smoker Duration of Surgery greater than 60 minutes Number of Risk Factors PONV Score Height & Weight Height & Weight: Anesthesia: Height & Weight Height 5 ft 11 in 06/29/24 14:45 Weight: 82.242 kg 06/29/24 14:45 Body Mass Index (BMI) 25.2 06/29/24 14:45 Respiratory Assessment Respiratory Assessment - instant powder supervisor: Respiratory Tract Infection Hx - instant powder supervisor Hx Respiratory Tract Infection STOP Sleep Apnea STOP Sleep Apnea - instant powder supervisor: STOP Sleep Apnea - instant powder supervisor Hx Hypertension Hx Sleep Apnea CPAP BIPAP Do you snore loudly (louder than talking or can be heard Do you often feel tired/ fatigued/ sleepy during daytime? Has anyone observed you stop breathing during sleep? STOP Results QUESTION #5 FULL TEXT : Do you snore loudly (louder than talking or can be heard through closed doors)? 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 Specify any problems Hx of Preganancy in last 3 Months Nurse Filling Out Transfusion & Questions: Date: Time: Patient unable to answer at this time (ie. confused, unrespo /Reproduction History /Reproductive History - instant powder supervisor: /Reproductive Hx- instant powder supervisor Hx Now Gestational Age (in weeks): EDC: Hx Hx Para Hx Section SAB Active Medications Active Medications: Current Medications Generic Name Dose Route Start Last Admin Trade Name Freq PRN Reason Stop Dose Admin Lactated Ringer's 1,000 mls @ 15 mls/hr 06/29/24 17:00 IV .Q48H CON PFSH Medical History Concussion Skull fracture Home Medications ?Medication ?Instructions ?Recorded ?Last Taken ?Type ascorbic acid (vitamin C) 1,000 mg 1 g PO DAILY 06/29/24 Unknown History tablet (C-1000) cephalexin 500 mg capsule 500 mg PO Q8H 7 days #21 caps 06/29/24 Unknown Rx cyanocobalamin (vitamin B-12) 100 100 mcg PO DAILY 06/29/24 Unknown History mcg tablet (Vitamin B-12) oxycodone 5 mg tablet 5 mg PO Q8H PRN pain 5 days #20 06/29/24 Unknown Rx tabs Allergy/AdvReac Type Severity Reaction Status Date / Time No Known Allergies Allergy Verified 06/29/24 14:48 Surgical History H/O hand surgery Social History Smoking Status: Current every day smoker tobacco type: cigarettes Review of Systems (Anesthesia) ROS Narrative System reviewed and no additional complaints, except as documented.
[2024-06-29] MEDS: Bupivacaine 0.25% 30 ML Vial (18:05)
--- NOTE | 2024-06-29 18:39 | PCM.POST.ANE ---
Anesthesia: Postop Eval I Current Vital Signs Temperature: 98.6 F Pulse Rate: 81 Blood Pressure: 120/65 Respiratory Rate: 16 Pulse Ox: 99 Oxygen Delivery Method: Room Air Assessment Airway patent: Yes Spontaneous unlabored respirations: Yes Mental status: Asleep nausea: Yes Vomiting: Yes Anesthesia Complication: Yes Anesthesia Complication Comment:: Patient had emesis with emergence. Airway was suctioned out. We were able to sit the patient up and he was able to clear his own airway. Fluid Hydration Crystalloid volume administer (ml): 800 Total IV fluid infused: 800 Progress Note Post-operative progress note: Patient had emesis with emergence. Airway was suctioned out. We were able to sit the patient up and he was able to clear his own airway. In PACU, lungs were clear by auscultation. Anesthesia document: Postop Eval 1 completed: Yes
--- NOTE | 2024-06-29 19:41 | PCM.POSTANE2 ---
Anesthesia Postop Eval I Sum Postop Eval Completion status Anesthesia document: Postop Eval 1 completed: Yes Anesthesia Postop Eval I Summary Anesthesia Postop Eval I Summary: Anesthesia Postop Eval I: Assessment Summary Airway patent Yes 06/29/24 18:46 Spontaneous unlabored Yes 06/29/24 18:46 respirations Mental status Asleep 06/29/24 18:46 nausea Yes 06/29/24 18:46 Vomiting Yes 06/29/24 18:46 Anesthesia Postop Eval I: Fluid Summary Crystalloid volume administer 800 06/29/24 18:46 (ml) Colloids volume administered ( ml) Blood Product volume administered (ml) Total IV fluid infused 800 06/29/24 18:46 Anesthesia Postop Eval I: Summary Notes Anesthesia Complication Yes 06/29/24 18:46 Anesthesia Complication Patient had emesis 06/29/24 18:46 Comment: with emergence. Airway was suctioned out. We were able to sit the patient up and he was able to clear his own airway. Post-operative progress note Patient had emesis 06/29/24 18:46 with emergence. Airway was suctioned out. We were able to sit the patient up and he was able to clear his own airway. In PACU, lungs were clear by auscultation. Anesthesia: Postop Eval II Evaluation Mental status: Awake and Calm Pain Level: 0 nausea: No Vomiting: No Progress Note Post-operative progress note: Lungs remain clear. No shortness of breath. Surgical site is numb and comfortable. Complications Anesthesia Complication: No
== END 2024-06-29 19:45 | disposition home or self-care (01) ==
LOC: ED 16:22 → SDC 16:22 → ACINP 16:27
PROVIDERS: Emergency Provider Emergency Medicine; Visit Provider Surgery Plastic and Reconstructive Surgery
PROC: (CPT 11012; principal; 2024-06-29 16:30)
DX: S68.521A Partial traumatic transphalangeal amputation of right thumb, initial encounter (principal); W23.0XXA Caught, crushed, jammed, or pinched between moving objects, initial encounter; F17.210 Nicotine dependence, cigarettes, uncomplicated
CPT/HCPCS: 11012; 14040; 01830; 73140; 99284; A4216; J2405